=== PATIENT | female | born 1975 | race Asian ===

== ENCOUNTER → 2016-07-21 | Outpatient (CLI) | payer MEDICAID ==
[~2016-07-21] MED LIST: GLYB2.5T3 PO; IBUP-232 PO; LANC1MIS74; ONETTES4; ONETTES4 TOPICAL; OXYC1TAB63 PO; PREN1CAP7 PO; TRUE METRIX BLO1 KIT
== END ==
LOC: HPND 08:21
PROVIDERS: ATTEND Obstetrics & Gynecology Obstetrics
DX: O09.522 Supervision of elderly multigravida, second trimester (principal); O34.212 Maternal care for vertical scar from previous cesarean delivery
CPT/HCPCS: 76811

== ENCOUNTER → 2016-08-18 | Outpatient (CLI) | payer MEDICAID | LOC: HPND 10:00 | PROVIDERS: ATTEND Obstetrics & Gynecology | DX: O09.522 Supervision of elderly multigravida, second trimester (principal) | CPT/HCPCS: 76816; 76825; 76827; 93325 ==

== ENCOUNTER → 2016-09-17 | Outpatient (CLI) | payer MEDICAID | LOC: HPND 09:12 | PROVIDERS: ATTEND Obstetrics & Gynecology | DX: O09.522 Supervision of elderly multigravida, second trimester (principal); O40.2XX0 Polyhydramnios, second trimester, not applicable or unspecified | CPT/HCPCS: 76816 ==

== ENCOUNTER → 2016-10-15 | Outpatient (CLI) | payer MEDICAID | LOC: HPND 09:11 | PROVIDERS: ATTEND Obstetrics & Gynecology | DX: O09.523 Supervision of elderly multigravida, third trimester (principal); O40.3XX0 Polyhydramnios, third trimester, not applicable or unspecified | CPT/HCPCS: 76816 ==

== ENCOUNTER → 2016-10-15 | Outpatient (CLI) | payer MEDICAID | LOC: CDED 09:56 | PROVIDERS: ATTEND Obstetrics & Gynecology | DX: O24.419 Gestational diabetes mellitus in pregnancy, unspecified control (principal) | CPT/HCPCS: 97802 ==

== ENCOUNTER → 2016-11-12 | Outpatient (CLI) | payer MEDICAID | LOC: HPND 09:02 | PROVIDERS: ATTEND Obstetrics & Gynecology | DX: O09.523 Supervision of elderly multigravida, third trimester (principal); O40.3XX0 Polyhydramnios, third trimester, not applicable or unspecified; O24.410 Gestational diabetes mellitus in pregnancy, diet controlled; Z3A.00 Weeks of gestation of pregnancy not specified | CPT/HCPCS: 76816 ==

== ENCOUNTER 2016-12-15 00:32 | Inpatient (IN) | payer MEDICAID ==
[2016-12-15] VITALS (12 sets, daily range): BP systolic 102–153; BP diastolic 55–93; PULSE 84–115; RESP 14–20; TEMP 97–98.5; O2SAT 98–100
[~2016-12-15] VITALS: Ht 157.5 cm; Wt 83.0 kg
[~2016-12-15 00:32] MED LIST changes: -IBUP-232 PO; -ONETTES4; -OXYC1TAB63 PO
[2016-12-15] MEDS ORDERED: LACTATED RINGER'S 1000 ML INJ 1,000 ML IV ONE (01:19)
--- NOTE | 2016-12-15 01:19 | PD ---
HPI Chief Complaint Contractions and vaginal spotting Date Seen: Dec 15, 2016 Time Seen: 01:15 Travel History International Travel<30 Days: No Contact w/Intl Traveler<30Days: No Known Affected Area: No History of Present Illness HPI Patient is this 41-year-old white female who is at proximal a 39 weeks gestation who comes in complaining of contractions and vaginal spotting. Spotting occurred 2 this evening, and she's had contractions for approximately 3 hours. She's had third 2 prior C-sections in the past and is scheduled for C- section on Wednesday. She has diet-controlled diabetes that was supplemented recently with glyburide 2.5 mg at night with good control. Para: 2 : 3 History Past Medical History Narrative Medical Gestational diabetes Obstetric History Obstetric History 2 Family History Family History: Negative Social History Alcohol Use: No Tobacco Use: No Substance Abuse: No Allergies-Medications (Allergen,Severity, Reaction): Coded Allergies: No Known Allergies (Verified , 12/02/16) Home Meds Active Scripts Onetouch Ultra Test Strips 1 Anne Anne #100 STRIP TOPICAL TID Ref 3 testing blood sugar QID Prov:Meño Flores MD 12/02/16 True Metrix Blood Glucose W/Device 1 Kit Kit #1 KIT .ROUTE DIRECTED Ref 0 Prov:Nallely Garcia 11/20/16 Glyburide 2.5 Mg Tab2.5 Mg PO HS #30 TAB Ref 2 Take with meals at the same time each day Prov:Nallely Garcia 11/04/16 Onetouch Delica Lancets E 1 Mis Mis #100 EA .ROUTE DIRECTED Ref 3 Prov:Mercedez Mcnally CNMP 10/20/16 W/O Vit A W/ Fe Fumar (Citranatal [place])27-1-260 Mg Cap1 Cap PO DAILY #30 CAP Ref 11 Prov:Mercedez Mcnally CNMP 05/28/16 Review of Systems Except as stated in HPI: all other systems reviewed are Neg Physical Exam Narrative GENERAL: Well-nourished, well-developed patient. SKIN: Warm and dry. HEAD: Normocephalic and atraumatic. EYES: No scleral icterus. No injection or drainage. ENT: No nasal drainage noted. Mucous membranes pink. Airway patent. NECK: Supple, trachea midline. No JVD. CARDIOVASCULAR: Regular rate and rhythm without murmurs, gallops, or rubs. RESPIRATORY: Breath sounds equal bilaterally. No accessory muscle use. BREASTS: Bilateral exam showed no masses , no retractions, no nipple discharge. ABDOMEN/GI: Abdomen soft, non-tender, bowel sounds present, no rebound, no guarding Gravid to [42-] weeks size Fundal Height: [-] GENITOURINARY: External Genitalia: intact and normal in appearance BUS glands: [-Normal] Cervix: [-Posterior] Dilatation: [5 cm-] Effacement: [-80] Station: [And is to-] Presentation: [-] Membranes: [intact ] Uterine Contractions: [-Every 5] FHT's: Category: [1-] Baseline: [140-] Reactive: [Moderate-] Variability: [Moderate-] Decels: [-Absent] EXTREMITIES: No cyanosis or edema. BACK: Nontender without obvious deformity. No CVA tenderness. NEUROLOGICAL: Awake and alert. Motor and sensory grossly within normal limits. Five out of 5 muscle strength in all muscle groups. Normal speech. Data Data Vital Signs Reviewed: Yes MDM Plan 41-year-old who is at term gestation with 2 prior sections. Patient in labor and will need a repeat today patient desires a tubal ligation for permanent sterilization and she understands the 1 in 400 chance of failure Diagnosis Diagnosis: Primary Impression: 39 weeks gestation of Additional Impressions: Previous section Previous section complicating , antepartum condition or complication Gestational diabetes mellitus (GDM) controlled on oral hypoglycemic drug, antepartum Gestational diabetes mellitus (GDM) controlled on oral hypoglycemic drug Irregular uterine contractions Arpita Coello MD Dec 15, 2016 01:19
[2016-12-15] MEDS ORDERED: SODIUM CHLORIDE 0.9% FLUSH 10 ML FLUSH IV FLUSH PRN (01:30)
[2016-12-15] MEDS ORDERED: oxyCODONE/ACETAMINOPHEN 5 MG/325 MG TAB PO PRN (01:30)
[2016-12-15] MEDS ORDERED: SIMETHICONE 80 MG CHEWABLE TAB PO PRN (01:30)
[2016-12-15] MEDS ORDERED: OXYTOCIN 30 UNITS-500ML PREMIX 500 ML IV ONE (01:30)
[2016-12-15] MEDS ORDERED: KETOROLAC TROMETHAMINE 60 MG/2 ML (IM) VIAL IM PRN (01:30)
[2016-12-15 01:37] LABS: BACTERIA, URINE OCC /hpf; BLOOD, URINE NEG (NEG); GLUCOSE,URINE NEG (NEG); KETONE, URINE NEG (NEG); MUCUS URINE FEW /lpf (OCC); NITRITE,URINE NEG (NEG); PH, URINE 6.5 (5.0-8.5); SQUAMOUS EPITHELIAL CELL URINE 4 /hpf (0-5); TRANSITIONAL EPI CELLS, URINE <1 /hpf; URINE COLOR LIGHT-YELLOW (YELLW/STRAW)
[2016-12-15 01:38] LABS: AUTOMATED NEUTROPHIL # 6.6 TH/MM3 (1.8-7.7); BASOPHIL # 0.1 TH/MM3 (0-0.2); BASOPHIL % 1.1 % (0.0-2.0); COMMENT (UR) CATH-CULTURE IND; CULTURE IF INDICATED CATH CULTURE IND; EOSINOPHIL # 0.2 TH/MM3 (0-0.4); EOSINOPHIL % 2.3 % (0.0-4.0); HEMATOCRIT 38.6 % (35.0-46.0); HEMO FLAGS DIFF FINAL; LYMPH % 16.4 % (9.0-44.0); LYMPHOCYTE # 1.5 TH/MM3 (1.0-4.8); MEAN CELL VOLUME 81.8 FL (80.0-100.0); MEAN CORPUSCULAR HEMOGLOBIN 27.9 PG (27.0-34.0); MEAN CORPUSCULAR HGB CONC 34.1 % (32.0-36.0); MONO % 7.3 % (0.0-8.0); NEUT % 72.9 % (16.0-70.0); PLATELET COUNT 166 TH/MM3 (150-450); RED BLOOD COUNT 4.72 MIL/MM3 (4.00-5.30); RED CELL DISTRIBUTION WIDTH 14.1 % (11.6-17.2)
[2016-12-15] MEDS ORDERED: MORPHINE SULFATE PF 5 MG/10 ML VIAL ONE (01:41)
[2016-12-15] MEDS ORDERED: OXYTOCIN 10 UNIT/ML AMP ONE (01:41)
[2016-12-15] MEDS ORDERED: ONDANSETRON HCL 4 MG/2 ML VIAL ONE (01:41)
[2016-12-15] MEDS ORDERED: ceFAZolin 2 GM PREMIX 50 ML IV SCH (02:30)
--- NOTE | 2016-12-15 02:40 | PD.OB.DELI ---
Procedure Note Section Procedure Pre Op Diagnosis: (1) Irregular uterine contractions (2) 39 weeks gestation of (3) Gestational diabetes mellitus (GDM) controlled on oral hypoglycemic drug (4) Previous section complicating , antepartum condition or complication Post Op Diagnosis: Post Op Diagnosis same Performed by Arpita Coello Procedure: Repeat Low Transverse Sec, Other (bilateral midsegment salpingectomy) Indication for delivery: Desired elective repeat Informed consent obtained: For anesthesia, For procedure Confirmed correct: Time-out taken Anesthesia: Spinal Medication prior to procedure: Antacids, Antibiotics, IV Monitoring during procedure: Blood pressure monitoring, groundwater monitoring technician Urinary catheter: Inserted using sterile technique, To dependent drainage Sterile preparation: Duraprep Position: Supine with wedge to left side Operative Features Skin Incision: Pfannenstiel Uterine Incision: Low transverse w/knife / blunt ext Membranes Ruptured: Artificially, Amount of liquid (copious), Appearance of fluid (light meconium) Presentation: Occiput anterior Time of : 02:09 Delivery of infant: Uneventful : Female One Minute : 8 Five Minute : 9 Weight: 3900gms Status of infant: Viable Placenta delivered: Intact Medications: Antibiotics, Oxytocin Estimated blood loss: 600 Procedure tolerated: Well Maternal Condition: Stable Condition: Stable Arpita Coello MD Dec 15, 2016 02:40
--- NOTE | 2016-12-15 02:48 | HHI.HP ---
History & Physical H&P HPI HPI Chief Complaint Contractions and vaginal spotting Date Seen: Dec 15, 2016 Time Seen: 01:15 Travel History International Travel<30 Days: No Contact w/Intl Traveler<30Days: No Known Affected Area: No History of Present Illness HPI Patient is this 41-year-old white female who is at proximal a 39 weeks gestation who comes in complaining of contractions and vaginal spotting. Spotting occurred 2 this evening, and she's had contractions for approximately 3 hours. She's had third 2 prior C-sections in the past and is scheduled for C- section on Wednesday. She has diet-controlled diabetes that was supplemented recently with glyburide 2.5 mg at night with good control. Para: 2 : 3 History (Limited) History Past Medical History Narrative Medical Gestational diabetes Obstetric History Obstetric History 2 Family History Family History: Negative Social History Alcohol Use: No Tobacco Use: No Substance Abuse: No Allergies-Medications Allergies-Medications (Allergen,Severity, Reaction): Coded Allergies: No Known Allergies (Verified , 12/02/16) Home Meds Active Scripts Onetouch Ultra Test Strips 1 Anne Anne #100 STRIP TOPICAL TID Ref 3 testing blood sugar QID Prov:Meño Flores MD 12/02/16 True Metrix Blood Glucose W/Device 1 Kit Kit #1 KIT .ROUTE DIRECTED Ref 0 Prov:Nallely Garcia 11/20/16 Glyburide 2.5 Mg Tab2.5 Mg PO HS #30 TAB Ref 2 Take with meals at the same time each day Prov:Nallely Garcia 11/04/16 Onetouch Delica Lancets E 1 Mis Mis #100 EA .ROUTE DIRECTED Ref 3 Prov:Mercedez Mcnally CNM 10/20/16 W/O Vit A W/ Fe Fumar (Citranatal [place])27-1-260 Mg Cap1 Cap PO DAILY #30 CAP Ref 11 Prov:Mercedez Mcnally CNM 05/28/16 ROS Review of Systems Except as stated in HPI: all other systems reviewed are Neg Physical Exam Physical Exam Narrative GENERAL: Well-nourished, well-developed patient. SKIN: Warm and dry. HEAD: Normocephalic and atraumatic. EYES: No scleral icterus. No injection or drainage. ENT: No nasal drainage noted. Mucous membranes pink. Airway patent. NECK: Supple, trachea midline. No JVD. CARDIOVASCULAR: Regular rate and rhythm without murmurs, gallops, or rubs. RESPIRATORY: Breath sounds equal bilaterally. No accessory muscle use. BREASTS: Bilateral exam showed no masses , no retractions, no nipple discharge. ABDOMEN/GI: Abdomen soft, non-tender, bowel sounds present, no rebound, no guarding Gravid to [42-] weeks size Fundal Height: [-] GENITOURINARY: External Genitalia: intact and normal in appearance BUS glands: [-Normal] Cervix: [-Posterior] Dilatation: [5 cm-] Effacement: [-80] Station: [And is to-] Presentation: [-] Membranes: [intact ] Uterine Contractions: [-Every 5] FHT's: Category: [1-] Baseline: [140-] Reactive: [Moderate-] Variability: [Moderate-] Decels: [-Absent] EXTREMITIES: No cyanosis or edema. BACK: Nontender without obvious deformity. No CVA tenderness. NEUROLOGICAL: Awake and alert. Motor and sensory grossly within normal limits. Five out of 5 muscle strength in all muscle groups. Normal speech. Data Data Data Vital Signs Reviewed: Yes MDM MDM Plan 41-year-old who is at term gestation with 2 prior sections. Patient in labor and will need a repeat today patient desires a tubal ligation for permanent sterilization and she understands the 1 in 400 chance of failure Diagnosis Diagnosis: Primary Impression: 39 weeks gestation of Additional Impressions: Previous section Previous section complicating , antepartum condition or complication Gestational diabetes mellitus (GDM) controlled on oral hypoglycemic drug, antepartum Gestational diabetes mellitus (GDM) controlled on oral hypoglycemic drug Irregular uterine contractions Arpita Coello MD Dec 15, 2016 02:48
[2016-12-15] MEDS ORDERED: CITRIC ACID-SODIUM CITRATE LIQ 30 ML UDC PO SCH (03:00)
[2016-12-15] MEDS ORDERED: EPIDURAL-DIPHENHYDRAMINE HCL 50 MG CAP PO PRN (05:00)
[2016-12-15] MEDS ORDERED: EPIDURAL-DO NOT ADMINISTER ANTICOAGULANTS PRN (05:00)
[2016-12-15] MEDS ORDERED: EPIDURAL-NO SYSTEMIC NARCOTICS PRN (05:00)
[2016-12-15] MEDS ORDERED: EPIDURAL-DIPHENHYDRAMINE HCL 50 MG/ML VIAL IV PUSH PRN (05:00)
[2016-12-15] MEDS ORDERED: EPIDURAL-NALOXONE HCL 0.4 MG/ML AMP IV PRN (05:00)
[2016-12-15] MEDS ORDERED: LACTATED RINGER'S 1000 ML INJ 1,000 ML IV SCH (06:25)
--- NOTE | 2016-12-15 07:16 | HHI.OB ---
Subjective Post Operative Day: 0 Remarks Postoperative day # 0. AFVSS overnight. Incision not actively draining. Decreased lochia. Denies dysuria. No breast tenderness. She is feeding the baby via breast. Appetite good. No nausea or vomiting. Patient has not yet had a bowel movement. Has not yet ambulated. Feels dizzy, has not yet eaten, still has Anne and has not gotten up yet. Denies calf pain or shortness of breath. Otherwise, she is doing well this morning and has no other concerns. Objective Vitals/I&O Vital Signs Date Time Temp Pulse Resp B/P Pulse Ox O2 Delivery O2 Flow Rate FiO2 12/15/16 05:00 98.0 85 14 121/71 12/15/16 04:01 85 14 103/58 12/15/16 04:01 97.6 99 12/15/16 03:47 16 100 12/15/16 03:47 94 107/61 12/15/16 03:34 86 16 109/59 98 12/15/16 03:15 92 18 116/84 100 12/15/16 03:04 99 12/15/16 03:00 84 16 110/57 12/15/16 02:45 97.0 85 16 12/15/16 02:45 99 12/15/16 02:45 102/55 Result Diagram: 12/15/16 0119 Objective Remarks GENERAL: Well-nourished, well-developed female in no apparent distress. CARDIOVASCULAR: Regular rate and rhythm without murmurs, gallops, or rubs. RESPIRATORY: Breath sounds equal bilaterally. No accessory muscle use. ABDOMEN/GI: Abdomen soft, non-tender, bowel sounds present. Incision: Dry and intact. Bandage has old serosanguinous fluid of approx [id number]. Fundus: Firm, non-tender at umbilicus. GENITOURINARY: Light to moderate bleeding. EXTREMITIES: No cyanosis or edema, non-tender, without signs of DVT. Medications and IVs Current Medications Medications (Trade) Dose Ordered Sig/Luís Route Start Time Stop Time Status Last Admin Lactated Ringer's 1,000 ml @ 150 mls/hr Q6H40M IV 12/15/16 01:49 (Lr 1000 ml Inj) 1,000 ml @ 100 mls/hr Q10H IV 12/15/16 06:25 12/16/16 02:24 (NS Flush) 2 ml BID IV FLUSH 12/15/16 09:00 (NS Flush) 2 ml UNSCH PRN IV FLUSH 12/15/16 01:30 (Mylicon Chew) 80 mg QID PRN PO 12/15/16 01:30 (Motrin) 600 mg Q6H PRN PO 12/15/16 01:30 (Toradol Inj) 30 mg Q6H PRN IM 12/15/16 01:30 12/16/16 01:29 (Percocet 5-325 Mg) 1 tab Q4H PRN PO 12/15/16 01:30 (Percocet 5-325 Mg) 2 tab Q4H PRN PO 12/15/16 01:30 (Carmel-Colace) 2 tab Q12H PRN PO 12/15/16 01:30 (M-M-R Ii Inj) 0.5 ml ONCE ONCE SQ 12/16/16 16:00 12/16/16 16:01 (Boostrix Inj) 0.5 ml ONCE ONCE IM 12/16/16 16:00 12/16/16 16:01 (Zofran Inj) 4 mg Q6H PRN IV PUSH 12/15/16 01:30 Miscellaneous Information NO SYSTEMIC NARCOTICS TO BE GIVEN FO... UNSCH PRN .XX 12/15/16 05:00 12/16/16 02:00 (Narcan Inj) 0.4 mg UNSCH PRN IV 12/15/16 05:00 12/16/16 02:00 (Benadryl Inj) 25 mg Q6H PRN IV PUSH 12/15/16 05:00 12/16/16 02:00 (Benadryl) 50 mg Q6H PRN PO 12/15/16 05:00 12/16/16 02:00 Miscellaneous Information ALL NURSING DEPARTMENTS UNSCH PRN .XX 12/15/16 05:00 12/16/16 02:00 Assessment/Plan Problem List: (1) 39 weeks gestation of (2) Gestational diabetes mellitus (GDM) controlled on oral hypoglycemic drug, antepartum (3) Previous section complicating , antepartum condition or complication Assessment and Plan 41 y/o female who is POD# 0 s/p repeat . Gestational DM, was on glyburide pre-operatively. -Continue routine care. -Percocet and Motrin PRN pain. -Encouraged OOB. Advised pelvic rest for 6 wks. Will need a f/u appt. in 1 wk for incision check. -Will discuss control tomorrow. -Anticipate discharge [address] Lee PGY2. Will discuss with Dr. Coello, attending. Lizzette Miguel MD R1 Dec 15, 2016 07:16
[2016-12-15] MEDS: ONDANSETRON HCL 4 MG/2 ML VIAL IV PUSH PRN ×2 (08:22→20:46)
[2016-12-15] MEDS ORDERED: OXYTOCIN 30 UNITS-500ML PREMIX 500 ML IV PRN (11:30)
[2016-12-15] MEDS: DOCUSATE SODIUM 50 MG/SENNA 8.6 MG TAB PO PRN (13:31)
[2016-12-15] MEDS: IBUPROFEN 600 MG TAB PO PRN (13:31)
[2016-12-15] MEDS: oxyCODONE/ACETAMINOPHEN 5 MG/325 MG TAB PO PRN (15:59)
[2016-12-15] MEDS: SODIUM CHLORIDE 0.9% FLUSH 10 ML FLUSH IV FLUSH SCH (20:46)
[2016-12-16 00:20] VITALS: BP 119/69; PULSE 93; RESP 20; TEMP 98
[2016-12-16] MEDS: IBUPROFEN 600 MG TAB PO PRN ×4 (00:34→21:55)
[2016-12-16 05:54] LABS: AUTOMATED NEUTROPHIL # 9.2 TH/MM3 (1.8-7.7); BASOPHIL % 0.4 % (0.0-2.0); EOSINOPHIL # 0.2 TH/MM3 (0-0.4); EOSINOPHIL % 1.3 % (0.0-4.0); HEMATOCRIT 30.7 % (35.0-46.0); HEMO FLAGS DIFF FINAL; LYMPH % 10.4 % (9.0-44.0); LYMPHOCYTE # 1.2 TH/MM3 (1.0-4.8); MEAN CELL VOLUME 82.7 FL (80.0-100.0); MEAN CORPUSCULAR HGB CONC 33.9 % (32.0-36.0); MONO % 7.4 % (0.0-8.0); NEUT % 80.5 % (16.0-70.0); PLATELET COUNT 145 TH/MM3 (150-450); RED BLOOD COUNT 3.71 MIL/MM3 (4.00-5.30); RED CELL DISTRIBUTION WIDTH 14.4 % (11.6-17.2); WHITE BLOOD COUNT 11.5 TH/MM3 (4.0-11.0)
--- NOTE | 2016-12-16 07:21 | HHI.OB ---
Subjective Post Operative Day: 1 Remarks Postoperative day # 1. AFVSS overnight. Incision not actively draining. Decreased lochia. Denies dysuria. No breast tenderness. She is feeding the baby via breast. Appetite good. No nausea or vomiting. Patient has not yet had a bowel movement but passing flatus. Ambulating without difficulty. Denies calf pain or shortness of breath. Otherwise, she is doing well this morning and has no other concerns. Objective Vitals/I&O Vital Signs Date Time Temp Pulse Resp B/P Pulse Ox O2 Delivery O2 Flow Rate FiO2 12/16/16 00:20 93 20 119/69 12/16/16 00:20 98.0 12/15/16 19:42 17 12/15/16 19:42 86 126/78 12/15/16 19:42 98.5 12/15/16 17:19 100 16 108/77 12/15/16 15:46 153/93 12/15/16 15:46 98.2 115 20 12/15/16 08:10 97.9 86 16 12/15/16 08:10 112/72 Result Diagram: 12/16/16 0517 Objective Remarks GENERAL: Well-nourished, well-developed female in no apparent distress. CARDIOVASCULAR: Regular rate and rhythm without murmurs, gallops, or rubs. RESPIRATORY: Breath sounds equal bilaterally. No accessory muscle use. ABDOMEN/GI: Abdomen soft, non-tender, bowel sounds present. Incision: Dry and intact. [place] and steri-strips normal in appearance. Fundus: Firm, non-tender at umbilicus. GENITOURINARY: Light to moderate bleeding. EXTREMITIES: No cyanosis or edema, non-tender, without signs of DVT. Medications and IVs Current Medications Medications (Trade) Dose Ordered Sig/Luís Route Start Time Stop Time Status Last Admin (Lr 1000 ml Inj) 1,000 ml @ 150 mls/hr Q6H40M IV 12/15/16 01:49 (NS Flush) 2 ml BID IV FLUSH 12/15/16 09:00 12/15/16 20:46 (NS Flush) 2 ml UNSCH PRN IV FLUSH 12/15/16 01:30 (Mylicon Chew) 80 mg QID PRN PO 12/15/16 01:30 (Motrin) 600 mg Q6H PRN PO 12/15/16 01:30 12/16/16 00:34 (Percocet 5-325 Mg) 1 tab Q4H PRN PO 12/15/16 01:30 12/15/16 15:59 (Percocet 5-325 Mg) 2 tab Q4H PRN PO 12/15/16 01:30 (Carmel-Colace) 2 tab Q12H PRN PO 12/15/16 01:30 12/15/16 13:31 (M-M-R Ii Inj) 0.5 ml ONCE ONCE SQ 12/16/16 16:00 12/16/16 16:01 (Boostrix Inj) 0.5 ml ONCE ONCE IM 12/16/16 16:00 12/16/16 16:01 (Zofran Inj) 4 mg Q6H PRN IV PUSH 12/15/16 01:30 12/15/16 20:46 Assessment/Plan Problem List: (1) 39 weeks gestation of (2) Gestational diabetes mellitus (GDM) controlled on oral hypoglycemic drug, antepartum (3) Previous section complicating , antepartum condition or complication Assessment and Plan 41 y/o female who is POD# 1 s/p repeat . Gestational DM, was on glyburide pre-operatively. BSG stable post-op. -Continue routine care. -Percocet and Motrin PRN pain. -Encouraged OOB. Advised pelvic rest for 6 wks. Will need a f/u appt. in 1 wk for incision check. -Had BTL. -Anticipate discharge 1-[address] Lee PGY2 and Dr. Ybarra, attending. Lizzette Miguel MD R1 Dec 16, 2016 07:21
[2016-12-16 09:00] VITALS: BP 106/68; PULSE 101; RESP 20; TEMP 98.4
[2016-12-16] MEDS: oxyCODONE/ACETAMINOPHEN 5 MG/325 MG TAB PO PRN ×3 (09:44→21:55)
[2016-12-16] MEDS ORDERED: DIPHTH/TETANUS/ACEL PERTUSSIS (BOOSTER) 0.5 ML VIAL/PFS IM ONE (16:00)
[2016-12-16] MEDS ORDERED: MEASLES, MUMPS, RUBELLA VACCINE 0.5 ML VIAL SQ ONE (16:00)
[2016-12-16 19:05] VITALS: BP 118/78; PULSE 88; RESP 18; TEMP 97.7
[2016-12-16] MEDS: DOCUSATE SODIUM 50 MG/SENNA 8.6 MG TAB PO PRN (21:54)
--- NOTE | 2016-12-16 23:25 | MP ---
cc: RICHARD IBANEZ MD Corrected Copy: 12/22/16 DATE OF SURGERY 12/15/16 PREOPERATIVE DIAGNOSIS 1. Irregular uterine contractions. The patient is in labor. 2. 39 weeks gestation. 3. Gestational diabetes controlled on oral hypoglycemic drugs. 4. Previous section x2 for repeat 5. Desires permanent sterilization. POSTOPERATIVE DIAGNOSIS 1. Irregular uterine contractions. The patient is in labor. 2. 39 weeks gestation. 3. Gestational diabetes controlled on oral hypoglycemic drugs. 4. Previous section x2 for repeat 5. Desires permanent sterilization. PROCEDURE 1. Repeat low transverse section without extension. 2. Bilateral mid segment salpingectomy ESTIMATED BLOOD LOSS 600 mL. SURGEON Brian Ibanez MD BORING AND FILLING MACHINE OPERATOR OR staff. MEDICATIONS Ancef 2 grams given preoperatively ANESTHESIA Spinal COUNTS Correct x3 DRAINS Anne gravity. FINDINGS 1. Normal uterus, tubes and ovaries. 2. Light meconium stained amniotic fluid in copious amounts 3. Infant female. Apgars 8 and 9. Vertex presentation. Weight was 3900 grams which was 8 pounds 10 ounces taken back to the recovery room. PATHOLOGY Bilateral tubal segments. DESCRIPTION OF PROCEDURE The patient was taken back to the operating room, prepped in a sterile fashion, placed in dorsosupine position with a wedge to her left side after adequate anesthetic was obtained. An incision was made through her previous Pfannenstiel scar and taken down to the fascia. The fascia was nicked in the midline, extended bilaterally and taken off the rectus muscles. Muscles were divided in the midline. Anterior peritoneum was entered and extended superiorly and inferiorly. A hysterotomy incision was made in the lower uterine segment bluntly and extended bilaterally. Bag of water was ruptured with copious white meconium-stained amniotic fluid. Infant's head was delivered to the operative field. Mouth and nares were bulb suctioned and the of the body was delivered and, after a 45-second cord clamping delay, was handed off to the resuscitation team. Placenta was delivered intact spontaneously and the endometrial cavity was curetted with a moist laparotomy sponge. Hysterotomy incision was repaired using running locking #1 chromic suture with good hemostasis at closure. Gutters were rendered free of all blood and clot material. The fascia was closed with a #1 PDS, subcuticular tissue was made hemostatic with the Bovie and bossman were placed into the skin. The patient tolerated procedure well. She was taken back to recovery room in good condition. ADDENDUM A bilateral tubal ligation was performed. The fallopian tube was grasped in the midsegment portion and a window was made in the mesosalpinx through an avascular segment and two #1 chromic sutures were placed into the left fallopian tube and the intervening fallopian tube was removed. The right tube was approached in a similar manner. Both tubal segments were sent for pathology. MD KHANG Kaufman/ /2:47 AM /2:45 PM [facility]
[2016-12-17] MEDS: LACTATED RINGER'S 1000 ML INJ 1,000 ML IV SCH ×3 (07:09→19:41)
--- NOTE | 2016-12-17 07:21 | HHI.OB ---
Subjective Post Operative Day: 2 Remarks Postoperative day # 2. AFVSS overnight. Incision not painful, but patient has abdominal pain improved with Percocet. Decreased lochia. Denies dysuria. No breast tenderness. She is feeding the baby via breast. Appetite good. No nausea or vomiting. Patient has not yet had a bowel movement but passing flatus. Ambulating without difficulty. Denies calf pain or shortness of breath. Otherwise, she is doing well this morning and has no other concerns. Objective Vitals/I&O Vital Signs Date Time Temp Pulse Resp B/P Pulse Ox O2 Delivery O2 Flow Rate FiO2 12/16/16 19:05 97.7 12/16/16 19:05 88 18 118/78 12/16/16 09:00 101 106/68 12/16/16 09:00 98.4 20 Result Diagram: 12/16/16 0517 Objective Remarks GENERAL: Well-nourished, well-developed female in no apparent distress. CARDIOVASCULAR: Regular rate and rhythm without murmurs, gallops, or rubs. RESPIRATORY: Breath sounds equal bilaterally. No accessory muscle use. ABDOMEN/GI: Abdomen soft, mild TTP globally with exam, bowel sounds present. Incision: Intact. Small amount of serosanginous fluid at left incision. [place] and steri-strips otherwise normal in appearance. Fundus: Firm at umbilicus. GENITOURINARY: Light to moderate bleeding. EXTREMITIES: No cyanosis or edema, non-tender, without signs of DVT. Medications and IVs Current Medications Medications (Trade) Dose Ordered Sig/Luís Route Start Time Stop Time Status Last Admin (Lr 1000 ml Inj) 1,000 ml @ 150 mls/hr Q6H40M IV 12/15/16 01:49 (NS Flush) 2 ml BID IV FLUSH 12/15/16 09:00 12/15/16 20:46 (NS Flush) 2 ml UNSCH PRN IV FLUSH 12/15/16 01:30 (Mylicon Chew) 80 mg QID PRN PO 12/15/16 01:30 (Motrin) 600 mg Q6H PRN PO 12/15/16 01:30 12/16/16 21:55 (Percocet 5-325 Mg) 1 tab Q4H PRN PO 12/15/16 01:30 12/16/16 21:55 (Percocet 5-325 Mg) 2 tab Q4H PRN PO 12/15/16 01:30 (Carmel-Colace) 2 tab Q12H PRN PO 12/15/16 01:30 12/16/16 21:54 (Zofran Inj) 4 mg Q6H PRN IV PUSH 12/15/16 01:30 12/15/16 20:46 Assessment/Plan Problem List: (1) 39 weeks gestation of (2) Gestational diabetes mellitus (GDM) controlled on oral hypoglycemic drug, antepartum (3) Previous section complicating , antepartum condition or complication Assessment and Plan 41 y/o female who is POD# s s/p repeat . Gestational DM, was on glyburide pre-operatively. BSG stable post-op. -Continue routine care. -Percocet and Motrin PRN pain. -Encouraged OOB. Advised pelvic rest for 6 wks. Will need a f/u appt. in 1 wk for incision check. -Had BTL during CS -Anticipate discharge today or tomorrow Discussed with Dr. Lee PGY2 and Dr. Gupta, attending. Lizzette Miguel MD R1 Dec 17, 2016 07:21
[2016-12-17] MEDS ORDERED: OXYC1TAB63 PO (07:23)
[2016-12-17] MEDS ORDERED: IBUP-232 PO (07:23)
--- NOTE | 2016-12-17 07:31 | HHI.DCPOC ---
Discharge Care Plan Diagnosis: (1) 39 weeks gestation of (2) delivery delivered (3) Gestational diabetes mellitus (GDM) controlled on oral hypoglycemic drug Report Symptoms to Your Doctor -Temperature above 100.5 degrees -Redness, of incision or excessive or foul smelling drainage -Unusual pain or calf pain -Increased vaginal bleeding -Painful or difficulty urinating -Feelings of extreme sadness or anxiety after 2 weeks Goals to Promote Your Health * To prevent worsening of your condition and complications * To maintain your health at the optimal level Directions to Meet Your Goals Take your medications as prescribed Follow your dietary instruction Follow activity as directed Ensure plenty of rest for recovery Drink fluids for hydration Keep your appointments as scheduled Take your immunizations and boosters as scheduled If your symptoms worsen call your PCP, if no PCP go to Urgent Care Center or Emergency Room Smoking is Dangerous to Your Health. Avoid second hand smoke Call the 24-hour crisis hotline for domestic abuse at Lizzette Miguel MD R1 Dec 17, 2016 07:31
[2016-12-17] MEDS: oxyCODONE/ACETAMINOPHEN 5 MG/325 MG TAB PO PRN ×5 (07:48→22:18)
[2016-12-17] MEDS: IBUPROFEN 600 MG TAB PO PRN ×3 (07:48→22:18)
[2016-12-17 07:50] VITALS: BP 131/85; PULSE 100; RESP 20; TEMP 98.4
[2016-12-17] MEDS ORDERED: LIDOCAINE HCL 1% 50 ML VIAL INFIL PRN (08:30)
--- NOTE | 2016-12-17 09:11 | HHI.PR ---
Subjective Remarks Patient has no complaints Objective - The incision is the previous bossman not approximating the skin some bleeding from the edges the wound is cleaned under sterile condition bossman replaced under local lidocaine infiltration pressure dressing applied Vital Signs Date Time Temp Pulse Resp B/P Pulse Ox O2 Delivery O2 Flow Rate FiO2 12/16/16 19:05 97.7 12/16/16 19:05 88 18 118/78 12/15/16 04:01 99 Result Diagram: 12/16/16 0517 A/P Assessment and Plan wound separation Plan pressure dressing abdominal binder cancel discharge reevaluation Nessa Lemus MD Dec 17, 2016 09:11
[2016-12-17] MEDS: SODIUM CHLORIDE 0.9% FLUSH 10 ML FLUSH IV FLUSH SCH ×2 (09:55→20:07)
[2016-12-17 14:15] VITALS: BP 116/76; PULSE 89; RESP 16; TEMP 98.4
[2016-12-17 19:50] VITALS: BP 128/81; PULSE 80; RESP 18; TEMP 98.3
[2016-12-17] MEDS: DOCUSATE SODIUM 50 MG/SENNA 8.6 MG TAB PO PRN (20:24)
[2016-12-18] MEDS: LACTATED RINGER'S 1000 ML INJ 1,000 ML IV SCH ×2 (02:08→09:49)
[2016-12-18] MEDS: IBUPROFEN 600 MG TAB PO PRN ×2 (04:28→11:00)
[2016-12-18] MEDS: oxyCODONE/ACETAMINOPHEN 5 MG/325 MG TAB PO PRN ×2 (04:29→11:00)
[2016-12-18 08:07] VITALS: BP 129/82; PULSE 81; RESP 16; TEMP 98.3
--- NOTE | 2016-12-18 08:14 | HHI.OB ---
Subjective Post Operative Day: 3 Remarks Postoperative day # 3. AFVSS overnight. Pain well controlled with Percocet. Decreased lochia. Denies dysuria. No breast tenderness. She is feeding the baby via breast. Appetite good. No nausea or vomiting. Has had BM. Ambulating without difficulty. Denies calf pain or shortness of breath. She was evaluated at bedside yesterday for incision pain and was noted to have partial dehiscence of the incision. Wound was cleaned, edges were reapproximated and stapled with pressure dressing placed. Ancef was started as prophylaxis, patient to receive 24 hours. Objective Vitals/I&O Vital Signs Date Time Temp Pulse Resp B/P Pulse Ox O2 Delivery O2 Flow Rate FiO2 12/17/16 19:50 98.3 80 18 128/81 12/17/16 14:15 98.4 89 16 116/76 Result Diagram: 12/16/16 0517 Objective Remarks GENERAL: Well-nourished, well-developed female in no apparent distress. CARDIOVASCULAR: Regular rate and rhythm without murmurs, gallops, or rubs. RESPIRATORY: Breath sounds equal bilaterally. No accessory muscle use. ABDOMEN/GI: Abdomen soft, mild TTP globally with exam, bowel sounds present. Incision: Intact. [place] in place. Minimal drainage, old noted on pressure dressing which was removed. Patient was left to air. Otherwise normal in appearance. Fundus: Firm at umbilicus. GENITOURINARY: Light to moderate bleeding. EXTREMITIES: No cyanosis or edema, non-tender, without signs of DVT. Medications and IVs Current Medications Medications (Trade) Dose Ordered Sig/Luís Route Start Time Stop Time Status Last Admin (Lr 1000 ml Inj) 1,000 ml @ 150 mls/hr Q6H40M IV 12/15/16 01:49 (NS Flush) 2 ml BID IV FLUSH 12/15/16 09:00 12/17/16 09:55 (NS Flush) 2 ml UNSCH PRN IV FLUSH 12/15/16 01:30 (Mylicon Chew) 80 mg QID PRN PO 12/15/16 01:30 (Motrin) 600 mg Q6H PRN PO 12/15/16 01:30 12/18/16 04:28 (Percocet 5-325 Mg) 1 tab Q4H PRN PO 12/15/16 01:30 12/18/16 04:29 (Percocet 5-325 Mg) 2 tab Q4H PRN PO 12/15/16 01:30 (Carmel-Colace) 2 tab Q12H PRN PO 12/15/16 01:30 12/17/16 20:24 (Zofran Inj) 4 mg Q6H PRN IV PUSH 12/15/16 01:30 12/15/16 20:46 Assessment/Plan Problem List: (1) 39 weeks gestation of (2) Gestational diabetes mellitus (GDM) controlled on oral hypoglycemic drug, antepartum (3) Previous section complicating , antepartum condition or complication Assessment and Plan 41 y/o female who is POD#3 s/p repeat . Gestational DM, was on glyburide pre-operatively. BSG stable post-op. -Continue routine care. -Percocet and Motrin PRN pain. -Encouraged OOB. Advised pelvic rest for 6 wks. Will need a f/u appt. in 1 wk for incision check. Will need to return to the OB ED on Wednesday for staple removal and incision check. Patient was counseled on this. -Had BTL during CS -Anticipate discharge today Discussed with Dr. Lee PGY2 and Dr. Ybarra, attending. Lizzette Miguel MD R1 Dec 18, 2016 08:13
[2016-12-18] MEDS: SODIUM CHLORIDE 0.9% FLUSH 10 ML FLUSH IV FLUSH SCH (12:35)
[2017-01-05] MEDS ORDERED: MACR100C2 PO (09:12)
== END 2016-12-18 13:54 | disposition home or self-care (01) | DRG 766 ==
LOC: HOBED 00:32 → H2EB 01:15 → H1EA 04:13
PROVIDERS: ADMIT Obstetrics & Gynecology Obstetrics; ATTEND Obstetrics & Gynecology Obstetrics
PROC: 10D00Z1 Extraction of Products of Conception, Low, Open Approach (ICD-10-PCS; principal; 2016-12-15)
PROC: 0HB7XZZ Excision of Abdomen Skin, External Approach (ICD-10-PCS; 2016-12-15)
PROC: 0UB70ZZ Excision of Bilateral Fallopian Tubes, Open Approach (ICD-10-PCS; 2016-12-15)
PROC: 0WQFXZZ Repair Abdominal Wall, External Approach (ICD-10-PCS; 2016-12-17)
DX: O34.219 Maternal care for unspecified type scar from previous cesarean delivery (principal); O24.425 Gestational diabetes mellitus in childbirth, controlled by oral hypoglycemic drugs; O90.89 Other complications of the puerperium, not elsewhere classified; R42 Dizziness and giddiness; O77.0 Labor and delivery complicated by meconium in amniotic fluid; O90.0 Disruption of cesarean delivery wound; Z37.0 Single live birth; Z3A.39 39 weeks gestation of pregnancy; Z30.2 Encounter for sterilization
CPT/HCPCS: 59025; 81001; 85025; 86850; 86900; 86901; 87086; 88302; 90715; 99285; J0690; J2274; J2405; J2590; J7120

== ENCOUNTER 2016-12-21 18:05 | Emergency (ER) | payer MEDICAID ==
[~2016-12-21 18:05] MED LIST changes: +IBUP-232 PO; -LANC1MIS74; -ONETTES4 TOPICAL; +OXYC1TAB63 PO; -TRUE METRIX BLO1 KIT
--- NOTE | 2016-12-31 10:54 | HHI.OB ---
Subjective Post Day: 5 Remarks Pt returns on Postop day 5 [12/21/16] to remove her bossman bossman removed and steri strips placed , wound intact clean and dry Objective Objective Remarks GENERAL: Well-nourished, well-developed patient. CARDIOVASCULAR: Regular rate and rhythm without murmurs, gallops, or rubs. RESPIRATORY: Breath sounds equal bilaterally. No accessory muscle use. ABDOMEN/GI: Abdomen soft, non-tender. Fundus: Firm, non-tender at umbilicus. GENITOURINARY: Light to moderate bleeding. EXTREMITIES: No cyanosis or edema, non-tender, without signs of DVT. Bebeto Ybarra II, MD Dec 31, 2016 10:54
[2017-01-05] MEDS ORDERED: MACR100C2 PO (09:12)
== END 2016-12-21 23:26 | disposition home or self-care (01) ==
LOC: HOBED 18:05
DX: Z48.02 Encounter for removal of sutures (principal)